=== PATIENT | male | born 1975 | race Caucasian/White ===

== ENCOUNTER 2020-12-20 19:38 | Emergency (ER) | payer OTHER ==
[~2020-12-20] VITALS: Ht 185.4 cm; Wt 142.4 kg
[2020-12-20 20:20] VITALS: BP 163/123
[2020-12-20] MEDS ORDERED: ONDA-24 PO (21:38)
[2020-12-20 21:43] VITALS: BP 156/94
== END 2020-12-20 21:43 | disposition home or self-care (01) ==
LOC: MED 19:38
DX: R19.7 Diarrhea, unspecified (principal); M79.10 Myalgia, unspecified site; R11.0 Nausea; Z20.822 Contact with and (suspected) exposure to COVID-19
CPT/HCPCS: 99283; U0003

== ENCOUNTER 2023-11-23 19:29 | Emergency (ER) | payer MEDICAID, OTHER ==
[~2023-11-23] VITALS: Ht 185.4 cm; Wt 136.1 kg
[~2023-11-23 19:29] MED LIST: ONDA-188 PO
[2023-11-23 19:38] VITALS: BP 148/91; PULSE 86; RESP 19; TEMP 98.4; O2SAT 97
[2023-11-23] MEDS: NACL 0.9% 1,000 ML IV SCH (20:04)
[2023-11-23] MEDS: KETOROLAC 30 MG/ML VIAL IVP ONE (20:05)
[2023-11-23 20:20] LABS: BASOPHILS # (AUTO) 0.1 K/uL (0.00-0.22); EOSINOPHILS # (AUTO) 0.4 K/uL (0-0.4); EOSINOPHILS % (AUTO) 5.5 % (0.0-4.0); HEMATOCRIT 41.1 % (36-52); HEMOGLOBIN 13.7 g/dL (12.0-18.0); LYMPHOCYTES # (AUTO) 2.6 K/uL (2.0-11.5); LYMPHOCYTES % (AUTO) 34.9 % (20.5-51.1); MEAN CORPUSCULAR HEMOGLOBIN 28 pg (27-31); MEAN CORPUSCULAR HGB CONC 33 g/dL (33-37); MEAN CORPUSCULAR VOLUME 84.8 fL (80-94); MONOCYTES # (AUTO) 0.8 K/uL (0.8-1.0); MONOCYTES % (AUTO) 10.3 % (1.7-9.3); NEUTROPHILS # (AUTO) 3.6 K/uL (1.8-7.7); NEUTROPHILS % (AUTO) 48.3 % (42.2-75.2); PLATELET COUNT (AUTO) 293 K/uL (140-450); RED BLOOD CELL COUNT(AUTO) 4.85 MIL/uL (4.20-6.10); RED CELL DISTRIBUTION WIDTH 15.2 % (11.6-13.7); WHITE BLOOD COUNT (AUTO) 7.5 K/uL (4.8-10.8)
[2023-11-23 20:26] LABS: APPEARANCE,URINE CLEAR (CLEAR); BILIRUBIN,URINE NEGATIVE (NEGATIVE); BLOOD, URINE NEGATIVE (NEGATIVE); COLOR,URINE YELLOW (YELLOW); LEUKOCYTE ESTERASE ,URINE NEGATIVE (NEGATIVE); NITRITE, URINE NEGATIVE (NEGATIVE); PROTEIN,URINE NEGATIVE (NEGATIVE); UGLUCOSE NEGATIVE (NEGATIVE); UROBILINOGEN,URINE 0.2 EU/dL (0.2 - 1)
[2023-11-23 20:32] LABS: ANION GAP 12.4 (8-16); CALCIUM 8.9 mg/dL (8.5-10.1); CARBON DIOXIDE 28.5 mmol/L (21-32); CREATININE 1.5 mg/dL (0.6-1.3); POTASSIUM 3.9 mmol/L (3.5-5.1)
[2023-11-23 20:37] LABS: ALBUMIN 3.6 g/dL (3.4-5.0); BILIRUBIN,DIRECT 0.1 mg/dL (0.0-0.3); TOTAL BILIRUBIN 0.3 mg/dL (0.0-1.0); TOTAL PROTEIN, SERUM 7.3 g/dL (6.4-8.2)
[2023-11-23] MEDS: NACL 0.9% 1,000 ML IV ONE ×2 (20:54→21:05)
[2023-11-23 22:15] VITALS: BP 132/90; PULSE 80; RESP 18; TEMP 98; O2SAT 97
[2023-11-23] MEDS ORDERED: ONDA-188 SL (22:48)
[2023-11-23] MEDS ORDERED: OMEP20EC11 PO (22:48)
[2023-11-24] MEDS ORDERED: BENZ-256 MM (17:54)
== END 2023-11-23 22:54 | disposition home or self-care (01) ==
LOC: MED 19:29
DX: R10.11 Right upper quadrant pain (principal); N28.9 Disorder of kidney and ureter, unspecified; E86.0 Dehydration; R14.0 Abdominal distension (gaseous); I10 Essential (primary) hypertension; F19.90 Other psychoactive substance use, unspecified, uncomplicated; Z79.1 Long term (current) use of non-steroidal anti-inflammatories (NSAID); Z79.899 Other long term (current) drug therapy
CPT/HCPCS: 36415; 74176; 76705; 80048; 80076; 81003; 83690; 85025; 96361; 96374; 99285; J1885; J7030; Q0092

== ENCOUNTER 2023-11-24 16:36 | Emergency (ER) | payer MEDICAID ==
[~2023-11-24] VITALS: Ht 185.4 cm; Wt 149.3 kg
[~2023-11-24 16:36] MED LIST changes: +OMEP20EC11 PO; +ONDA-188 SL
[2023-11-24 17:17] VITALS: BP 146/94; PULSE 72; RESP 16; TEMP 97.8; O2SAT 99
[2023-11-24] MEDS ORDERED: BENZ-256 MM (17:54)
== END 2023-11-24 18:08 | disposition home or self-care (01) ==
LOC: MED 16:36
DX: J02.9 Acute pharyngitis, unspecified (principal); I10 Essential (primary) hypertension; F17.210 Nicotine dependence, cigarettes, uncomplicated; Z79.899 Other long term (current) drug therapy
CPT/HCPCS: 99282

== ENCOUNTER 2023-12-20 22:27 | Emergency (ER) | payer MEDICAID ==
[~2023-12-20] VITALS: Ht 185.4 cm; Wt 142.0 kg
[~2023-12-20 22:27] MED LIST changes: +BENZ-256 MM
[2023-12-20 23:06] VITALS: BP 133/64; PULSE 79; RESP 15; TEMP 98.8; O2SAT 97
[2023-12-21] MEDS ORDERED: AMOX500C25 PO (03:40)
[2023-12-21] MEDS ORDERED: NAPR-337 PO (03:40)
[2023-12-21] MEDS: KETOROLAC 30 MG/ML VIAL IM ONE (03:59)
[2023-12-21 04:24] VITALS: BP 137/92; PULSE 77; RESP 16; TEMP 98.8; O2SAT 97
== END 2023-12-21 04:24 | disposition home or self-care (01) ==
LOC: MED 22:27
DX: H66.91 Otitis media, unspecified, right ear (principal); I10 Essential (primary) hypertension; Z79.899 Other long term (current) drug therapy
CPT/HCPCS: 96372; 99283; J1885